=== PATIENT | female | born 1940 | race Caucasian/White ===

== ENCOUNTER 2019-03-01 07:34 | Day surgery (SDC) | payer MEDICARE ==
[~2019-03-01] VITALS: Ht 144.8 cm; Wt 54.7 kg
[2019-03-01 08:25] VITALS: BP 141/81
[2019-03-01] MEDS ORDERED: TRAM50TA2 PO (09:01)
[2019-03-01] MEDS ORDERED: BACL20TA PO (09:01)
[2019-03-01] MEDS ORDERED: TOPI50CA5 PO (09:01)
[2019-03-01] MEDS ORDERED: BISO5TAB PO (09:01)
[2019-03-01] MEDS ORDERED: HYDR-3686 PO (09:01)
[2019-03-01] MEDS ORDERED: MELA3TAB64 PO (09:01)
[2019-03-01] MEDS ORDERED: MULT-933 PO (09:01)
[2019-03-01] MEDS ORDERED: HYDR-4383 PO (09:01)
[2019-03-01] MEDS ORDERED: SIMV20TA5 PO (09:01)
[2019-03-01] MEDS ORDERED: AMLO10TA4 PO (09:01)
[2019-03-01] MEDS ORDERED: ASCO500C15 PO (09:01)
[2019-03-01] MEDS ORDERED: OXYB10TA4 PO (09:01)
[2019-03-01] MEDS ORDERED: ALEN70TA60 PO (09:01)
[2019-03-01] MEDS ORDERED: LIPA1CAP31 PO (09:01)
[2019-03-01 09:37] VITALS: BP 148/73
[2019-03-01 09:45] VITALS: BP 141/82
== END 2019-03-01 10:05 ==
LOC: SSTAY O 07:34
PROVIDERS: ATTEND Radiology Vascular & Interventional Radiology
DX: J90 Pleural effusion, not elsewhere classified (principal); I10 Essential (primary) hypertension; E78.5 Hyperlipidemia, unspecified; M25.512 Pain in left shoulder
CPT/HCPCS: 32555; 71045; C1729; 88108; 88305